=== PATIENT | female | born 1985 | race African-American/Black ===

== ENCOUNTER 2019-05-03 14:00 | Emergency (ER) | payer OTHER, BC, SELFPAY ==
[2019-05-03 14:14] VITALS: BP 128/79; PULSE 92; RESP 18; TEMP 37; O2SAT 100
--- NOTE | 2019-05-03 14:19 | ED.URI ---
HPI - URI/Sore Throat General Chief Complaint: Upper Respiratory Infection Stated Complaint: migraine/cough/watery eyes Time Seen by Provider: 05/03/19 14:19 Source: patient Mode of arrival: ambulatory Limitations: no limitations History of Present Illness HPI Narrative: Jeremias Richardson is a 33 yo female with no PMH who came to express care with headache, cough, watery eyes and itchy throat x 1 week Related Data Allergies Allergy/AdvReac Type Severity Reaction Status Date / Time No Known Allergies Allergy Unverified 08/12/18 17:05 Review of Systems Review of Systems: Narrative: CONSTITUTIONAL: Denies fever, chills, sweats. Has headache EYES: Denies visual changes, redness, discharge. ENT: Denies rhinorrhea, has congestion, has scratchy throat, otalgia. CARDIOVASCULAR: Denies chest pain, palpitations, edema. RESPIRATORY: Denies dyspnea, wheezing, has cough GASTROINTESTINAL: Denies abdominal pain, nausea, vomiting, diarrhea. GENITOURINARY: Denies dysuria, hematuria, abnormal discharge SKIN: Denies rash or itching. NEUROLOGIC: Denies numbness, or focal weakness. PSYCHIATRIC: Denies anxiety or depression. [facility] Family History Family History Other No active medical problems Social History Social History (Updated 05/03/19 @ 14:31 by Leslie Jeffery CNP) Smoking status: Never smoker Alcohol intake: never Comments At time of signature, I agree with nursing past medical, surgical, social and family history. There is no relevant family history pertinent to the presenting complaint. Exam Narrative: Exam Narrative: GENERAL: This is a well-nourished, well-developed patient, in mild distress. HEAD: normocephalic, atraumatic. EYES: Sclera clear/white. Vision is grossly intact. EARS: External ears normal, auditory canals clear and without drainage, TMs normal without perforation. Hearing grossly intact. NOSE: External nose normal with nasal discharge, nares with redness, rhinorrhea. Tenderness ethmoid sinuses THROAT: Mucous membranes moist, posterior pharynx erythema. Occasional cough NECK: Neck supple, non-tender CARDIOVASCULAR: Regular rate and rhythm without murmurs, gallops, or rubs. RESPIRATORY: Clear to auscultation. Breath sounds equal bilaterally. No wheezes, rales, or rhonchi. GASTROINTESTINAL: Abdomen soft, non-tender, SKIN: warm, intact with no suspicious lesions or rash, good texture and turgor. NEURO: awake, alert, and oriented to person, place and time. There were no obvious focal neurologic abnormalities. Steady gait EXTREMITIES: Normal range of motion. No edema. BACK: Nontender without deformity. Course Course Emergency Course: Start on ibuprofen Mucinex prednisone albuterol inhaler Vital Signs Vital signs: Vital Signs Temperature 98.6 F 05/03/19 14:14 Pulse Rate 92 05/03/19 14:14 Respiratory Rate 18 05/03/19 14:14 Blood Pressure 128/79 05/03/19 14:14 Pulse Oximetry 100 05/03/19 14:14 Temperature 98.6 F 05/03/19 14:14 Pulse Rate 92 05/03/19 14:14 Respiratory Rate 18 05/03/19 14:14 Blood Pressure 128/79 05/03/19 14:14 Pulse Oximetry 100 05/03/19 14:14 MDM - URI/Sore Throat Differential Diagnosis Differential diagnosis: Likely upper respiratory infection, sinusitis, viral infection and other Discharge Plan Discharge Clinical Impression: Sinusitis Qualifiers: Sinusitis location: ethmoidal Chronicity: acute Recurrence: non-recurrent Qualified Code(s): J01.20 - Acute ethmoidal sinusitis, unspecified Patient Disposition: Home, Self-Care Condition: Stable Instructions: Sinusitis (ED) Prescriptions: New pseudoephedrine-guaifenesin [Mucinex D Maximum Strength] 120-1,200 mg tablet extended release 12 hr 1 tablet PO Q12H PRN (Reason: cold symptoms) Qty: 20 RF: 0 albuterol sulfate 90 mcg/actuation HFA aerosol inhaler 2 puff INHALATION QID PRN (Reason: shortness of miguel
== END 2019-05-03 14:45 | disposition home or self-care (01) ==
PROVIDERS: Emergency Provider Nurse Practitioner
DX: J01.20 Acute ethmoidal sinusitis, unspecified (principal); J45.909 Unspecified asthma, uncomplicated
CPT/HCPCS: 99213; G0463

== ENCOUNTER 2019-07-16 18:40 | Emergency (ER) | payer OTHER, SELFPAY ==
[2019-07-16 18:58] VITALS: BP 127/91; PULSE 81; RESP 16; TEMP 37.2; O2SAT 98
--- NOTE | 2019-07-16 19:28 | ED.ABDPAIN ---
HPI - Abdominal Pain General Chief Complaint: Urogenital-Female Stated Complaint: abd pain/back pain Time Seen by Provider: 07/16/19 19:12 Source: patient and RN notes reviewed Mode of arrival: ambulatory Limitations: no limitations History of Present Illness HPI narrative: Patient presents today complaining of right lower quadrant abdominal pain radiating to the right lower back since yesterday morning. She also reports 4 episodes of diarrhea stool since midnight. Denies nausea, vomiting, fever, urinary symptoms. Reports the pain is constant, but worse when she is standing or when she takes a deep breath. She has been taking Tylenol PM, which does provide some relief. She currently rates her pain 11/16. LMP was 07/01/2019 MD elicited complaint: abdominal pain Related Data Allergies Allergy/AdvReac Type Severity Reaction Status Date / Time No Known Allergies Allergy Unverified 07/16/19 19:06 Review of Systems Review of Systems: Narrative: CONSTITUTIONAL: Denies body aches, fever, chills, or sweats. EYES: Denies visual changes, redness, or discharge. ENT: Denies rhinorrhea, congestion, sore throat, or otalgia. CARDIOVASCULAR: Denies chest pain, palpitations, or edema. RESPIRATORY: Denies cough or dyspnea. GASTROINTESTINAL: Denies nausea, vomiting. + Right lower quadrant abdominal pain, diarrhea GENITOURINARY: Denies dysuria or hematuria. SKIN: Denies rash, itching, or wounds. MUSCULOSKELETAL: Denies back pain, joint pain, or myalgia. NEUROLOGIC: Denies headache, numbness, tingling, or weakness. PSYCH: Denies depression or anxiety. [facility] Social History Social History (Updated 05/03/19 @ 14:31 by Leslie Jeffery CNP) Smoking status: Never smoker Alcohol intake: never Comments At time of signature, I have reviewed and agree with nursing past medical, surgical, social and family history unless otherwise noted. Please see nursing chart for further information. There is no relevant family history pertinent to the presenting complaint Exam Narrative: Exam Narrative: GENERAL: Well-appearing, well-nourished, and in no acute distress. HEAD: Normocephalic, atraumatic. EYES: EOMI. No redness or drainage. Conjunctivae normal. ENT: Mucous membranes pink and moist. NECK: Normal AROM. CHEST: No respiratory distress. Clear to auscultation. HEART: Regular rate and rhythm. No murmur appreciated. Normal peripheral pulses. ABDOMEN: Soft,nondistended, normal active bowel sounds. Tenderness, rebound, and guarding to the right lower quadrant. +heel jar. -CVAT MUSCULOSKELETAL: No bony tenderness spine. EXTREMITIES: Normal range of motion. No edema. SKIN: Warm, dry, no rash. Capillary refill normal. Normal skin turgor. NEURO: No focal deficits. Alert and oriented x3. Gait steady. PSYCH: Normal affect. No signs of depression or anxiety. Course Vital Signs Vital signs: Vital Signs Temperature 98.9 F 07/16/19 18:58 Pulse Rate 81 07/16/19 18:58 Respiratory Rate 16 07/16/19 18:58 Blood Pressure 127/91 H 07/16/19 18:58 Pulse Oximetry 98 07/16/19 18:58 Temperature 98.9 F 07/16/19 18:58 Pulse Rate 81 07/16/19 18:58 Respiratory Rate 16 07/16/19 18:58 Blood Pressure 127/91 H 07/16/19 18:58 Pulse Oximetry 98 07/16/19 18:58 Reviewed Transfer Transfered to: [place] Transfer rationale: Right lower quadrant abdominal pain Accepting physician: Gabriel Coffman PA-C MDM - Abdominal Pain Differential Diagnosis Differential diagnosis: Likely abdominal pain, acute appendicitis, calculus of kidney and gastroenteritis Lab Data Attestation: I reviewed the patient's lab results. Labs: Urine Glucose Negative Reference Range: Negative Urine Ketone Negative Reference Range: Negative Urine Specific [place] 1.020 Reference Range:1.001-1.035 Urine Blood Trace Reference Range: Negative * *
== END 2019-07-16 19:35 | disposition short-term general hospital (02) ==
PROVIDERS: Emergency Provider Nurse Practitioner
DX: R10.31 Right lower quadrant pain (principal); Z87.442 Personal history of urinary calculi
CPT/HCPCS: 81003; 99213; G0463

== ENCOUNTER 2019-07-16 19:48 | Emergency (ER) | payer OTHER, BC, SELFPAY ==
--- NOTE | ~2019-07-16 | US_ITS ---
EXAMINATION: US pelvic complete w TV EXAM DATE: 07/16/2019 22:35 INDICATION: Right lower quadrant pain. Unremarkable CT scan. TECHNIQUE: Pelvic transabdominal and transvaginal sonogram was performed. There are multiple graysca le and Doppler images available for interpretation. Correlation is made to CT same date. FINDINGS: Uterus measures 10.4 x 5.1 x 7.6 cm, and is morphologically normal. Endometrial stripe me asures 6 mm, within normal limits. There are nabothian cysts. There is no free pelvic fluid. Right adnexa: The ovary measures 3.9 x 2.6 x 3.1 cm and is morphologically normal. Ovarian vascular f low confirmed. Left adnexa: The ovary measures 4.6 x 4.0 x 3.3 cm and is morphologically normal. Ovarian vascular fl ow confirmed. IMPRESSION: 1. Nabothian cyst. Otherwise unremarkable exam. Reviewed, dictated and finalized at location G.
--- NOTE | ~2019-07-16 | CT_ITS ---
EXAMINATION: CT abdomen pelvis w con EXAM DATE: 07/16/2019 20:45 INDICATION: Right lower quadrant pain. TECHNIQUE: Spiral CT of the abdomen and pelvis was performed following intravenous injection of 100 m L Omnipaque 350. Axial, coronal and sagittal images were reviewed. The dose-length product (DLP) fo r this examination was 614.91 mGy-cm. The exposure was tailored according to patient size (auto mA e xposure control), and iterative reconstruction (ASIR) was used as additional dose reduction technique . There is no prior study for comparison. FINDINGS: The liver, spleen, adrenal glands and pancreas are unremarkable. Gallbladder is unremarkab le. No biliary obstruction. Portal and splenic veins are patent. Kidneys enhance symmetrically. T here is no hydronephrosis. The uterus is anteverted and morphologically normal. The bladder is un remarkable. There is no retroperitoneal or pelvic lymphadenopathy. The appendix is normal. The stomach and small bowel are unremarkable. There is expected amount of c olonic stool. No free intraperitoneal gas. The heart is normal in size. There are no pericardial or pleural effusions. The lung bases are unremarkable. The bones are unremarkable. IMPRESSION: No acute intra-abdominal findings. Reviewed, dictated and finalized at location A.
[2019-07-16 19:51] VITALS: BP 137/92; PULSE 79; RESP 18; TEMP 36.7; O2SAT 100
[2019-07-16] MEDS: MORPHINE SULFATE 4 MG/ML INJ IV PUSH (20:21)
[2019-07-16 20:22] LABS: Basophils Percent Auto 0.4 % (0.2-1.2); Eosinophils Percent Auto 0.6 % (0-4.4); Hematocrit 38.6 % (37.0-47.0); Immature Granulocyte Absolute 0.01 K/mm3 (0.00-0.031); Immature Granulocyte Percent A 0.2 % (0-0.5); Lymphocytes Absolute Auto 2.93 K/mm3 (0.9-3.2); Lymphocytes Percent Auto 54.7 % (18.3-44.2); Mean Corpuscular HGB Conc 33.7 g/dl (32-36); Mean Corpuscular Hemoglobin 29.5 pg (26-34); Mean Corpuscular Volume 87.7 fl (80-100); Mean Platelet Volume 10.5 fl (7.4-10.4); Monocytes Absolute Auto 0.4 K/mm3 (0.1-0.6); Monocytes Percent Auto 8.2 % (2.6-8.5); Neutrophils Absolute Auto 1.9 K/mm3 (1.3-6.7); Neutrophils Percent Auto 35.9 % (45.5-73.1); Platelet Count Result 251 k/mm3 (150-375); Red Cell Distribution Width 14.5 % (11.5-14.5); White Blood Count 5.4 K/mm3 (4.5-10.0)
--- NOTE | 2019-07-16 20:22 | ED.ABDPAIN ---
HPI - Abdominal Pain General Chief Complaint: Abdominal Pain Stated Complaint: rlq abd pain; [facility] Time Seen by Provider: 07/16/19 20:06 History of Present Illness HPI narrative: Patient is a 33-year-old female who presents the ER with abdominal pain. Reports symptoms began yesterday and were new right lower quadrant and uncomfortable. Over the last day its become much more intense and is worse with any type of movement. It radiates into her back and her right upper quadrant. No urinary symptoms. No nausea/vomiting/shortness of breath. She has been without constipation or diarrhea. Has not had similar symptoms in the past. Symptoms are better if she sits still. Related Data Allergies Allergy/AdvReac Type Severity Reaction Status Date / Time No Known Allergies Allergy Verified 07/16/19 19:53 Review of Systems Review of Systems: All systems reviewed & are unremarkable except as noted in HPI and below Gastrointestinal: Gastrointestinal: Reports abdominal pain, Denies diarrhea, Denies nausea and Denies vomiting Genitourinary: Genitourinary: Denies hematuria, Denies nocturia, Denies dysuria and Reports flank pain PMFSH Past Medical History Medical History (Updated 07/17/19 @ 00:11 by Chuck Narvaez MD) Asthma Surgical History Surgical History (Updated 07/16/19 @ 20:23 by Chuck Narvaez MD) No pertinent past surgical history Social History Social History (Updated 05/03/19 @ 14:31 by Leslie Jeffery CNP) Smoking status: Never smoker Alcohol intake: never Gender identity (if verbalized by the patient): Female Exam Narrative: Exam Narrative: GENERAL: Well-appearing, well-nourished, and in no acute distress. HEAD: Normocephalic, atraumatic. ENT: Mucous membranes moist. CHEST: Clear to auscultation. No respiratory distress. HEART: Regular rate and rhythm. Normal peripheral pulses. ABDOMEN: Soft, mild tenderness right upper quadrant but has moderate tenderness right lower quadrant with guarding, nondistended. EXTREMITIES: Normal range of motion. No edema. PELVIC: Normal external genitalia. Frothy white discharge with pooling, normal-appearing cervix, mild discomfort with bimanual exam, tenderness to the right adnexa without fullness, no left adnexal tenderness. SKIN: Warm, dry, no rash. NEURO: Alert and oriented x3. PSYCH: Normal mood and affect. Course Course Emergency Course: Patient sexually active with one partner. No increase or change in vaginal discharge. I do have concern for PID given the fact that work-up is otherwise been unremarkable. 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 Patient will receive first dose antibiotics in the ER will be discharged with additional antibiotics. Instructed her return in 2 days if pain is worsening. Will give Seasonal Delivery Driver follow-up. Vital Signs Vital signs: Vital Signs Temperature 98.1 F 07/16/19 19:51 Pulse Rate 79 07/16/19 19:51 Respiratory Rate 18 07/16/19 19:51 Blood Pressure 137/92 H 07/16/19 19:51 Pulse Oximetry 100 07/16/19 19:51 Temperature 98.1 F 07/16/19 19:51 Pulse Rate 78 07/16/19 22:40 Respiratory Rate 18 07/16/19 22:40 Blood Pressure 134/90 07/16/19 22:40 Pulse Oximetry 100 07/16/19 19:51 MDM - Abdominal Pain Lab Data Result diagrams: 07/16/19 20:15 07/16/19 20:14 Labs: Lab Results 07/16/19 07/16/19 07/16/19 Range/Units 20:14 20:15 20:15 WBC 5.4 (4.5-10.0) K/mm3 RBC 4.40 (4.2-5.4) M/mm3 Hgb 13.0 (12.0-15.0) g/dL Hct 38.6 (37.0-47.0) % MCV 87.7 (80-100) fl MCH 29.5 (26-34) pg MCHC 33.7 (32-36) g/dl RDW 14.5 (11.5-14.5) % Plt Count 251 (150-375) k/mm3 MPV 10.5 H (7.4-10.4) fl Immature Gran % (Auto) 0.2 (0-0.5) % Neut % (Auto) 35.9 L (45.5-73.1) % Lymph % (Auto) 54.7 H (18.3-44.2) % [place] % (Auto) 8.2 (2.6-8.5) % Eos % (Auto)
[2019-07-16 20:27] LABS: Add Urine Microscopic? YES; Appearance Urine Cloudy (Clear); Bilirubin Urine Negative (Negative); Blood Urine Negative (Negative); Color Urine Yellow (Yellow); Glucose Urine UA Negative (Negative); Ketones Urine Negative (Negative); Leukocyte Esterase Ur 2+ LEU/UL (Negative); Mucus Urine Rare /lpf; Nitrate Urine Negative (Negative); Protein Urine 1+ mg/dL (Negative); Specific Grav Ur 1.029 (1.001-1.035); Squamous Epithelial Cell Urine Many /hpf (Few); Urobilinogen Urine Negative mg/dL (<2.0)
[2019-07-16 20:33] LABS: Alanine Aminotransferase 20 U/L (4-35); Albumin Level 4.6 g/dL (3.5-5.1); Alkaline Phosphatase 80 U/L (38-126); Aspartate Amino Transferase 24 U/L (14-36); Bilirubin,Total 0.4 mg/dL (0.2-1.3); Blood Urea Nitrogen 9 mg/dL (7-17); Carbon Dioxide 22 mmol/L (22-30); Chloride 105 mmol/L (98-107); Estimated CRCL calculation 110 ml/min; Estimated Glomerular Filt Rate > 60; Glucose 77 mg/dL (65-105); Lipase 108 U/L (23-300); Potassium 3.9 mmol/L (3.4-5.0); Sodium 136 mmol/L (137-145)
[2019-07-16 22:40] VITALS: BP 134/90; PULSE 78; RESP 18
[2019-07-16] MEDS: KETOROLAC 30 MG/ML VIAL (*BKC) IV PUSH (22:46)
[2019-07-17] MEDS: cefTRIAXone 250 MG VIAL IM (00:23)
[2019-07-17 00:24] VITALS: BP 126/91; PULSE 76; RESP 19; TEMP 37; O2SAT 100
[2019-07-17] MEDS: DOXYCYCLINE HYCLATE 100 MG TABLET PO (00:24)
== END 2019-07-17 00:25 | disposition home or self-care (01) ==
PROVIDERS: Emergency Provider Emergency Medicine
DX: R10.31 Right lower quadrant pain (principal); J45.909 Unspecified asthma, uncomplicated; N88.8 Other specified noninflammatory disorders of cervix uteri; Z11.3 Encounter for screening for infections with a predominantly sexual mode of transmission
CPT/HCPCS: 36415; 74177; 76830; 76856; 80053; 81001; 81003; 81025; 83690; 85025; 87070; 87077; 87086; 87088; 87491; 87591; 87808; 96372; 96374; 96375; 99284; A9270; J0696; J1885; J2270; Q9967

== ENCOUNTER 2019-09-17 12:24 | Emergency (ER) | payer OTHER, SELFPAY ==
[2019-09-17 12:37] VITALS: BP 129/79; PULSE 87; RESP 16; TEMP 36.8; O2SAT 99
--- NOTE | 2019-09-17 13:02 | ED.FEMALEGU ---
HPI - Female Genitourinary General Chief complaint: Urogenital-Female Stated complaint: abd pain Time Seen by Provider: 09/17/19 12:50 Source: patient and RN notes reviewed Mode of arrival: ambulatory Limitations: no limitations History of Present Illness HPI Narrative: Patient presents today with a 3-day history of external genital itching with white vaginal discharge. Denies urinary symptoms to include dysuria, hematuria, frequency, urgency. Denies abdominal pain, back pain, fever. Denies concerns for STDs. She was seen in July here and in the ER for lower abdominal pain and treated for possible PID. She did not follow-up with an ADAPTED PHYSICAL EDUCATION TEACHER after this. MD elicited complaint: vaginal discharge Related Data Home Medications Medication Instructions Recorded Confirmed albuterol sulfate 1 inh INHALATION QID 09/17/19 09/17/19 Allergies Allergy/AdvReac Type Severity Reaction Status Date / Time No Known Allergies Allergy Verified 09/17/19 12:42 Review of Systems Review of Systems: Narrative: CONSTITUTIONAL: Denies body aches, fever, chills, or sweats. EYES: Denies visual changes, redness, or discharge. ENT: Denies rhinorrhea, congestion, sore throat, or otalgia. CARDIOVASCULAR: Denies chest pain, palpitations, or edema. RESPIRATORY: Denies cough or dyspnea. GASTROINTESTINAL: Denies abdominal pain, nausea, vomiting, or diarrhea. GENITOURINARY: Denies dysuria or hematuria.+ Dental itching and vaginal discharge SKIN: Denies rash, itching, or wounds. MUSCULOSKELETAL: Denies back pain, joint pain, or myalgia. NEUROLOGIC: Denies headache, numbness, tingling, or weakness. PSYCH: Denies depression or anxiety. [facility] Past Medical History Medical History (Updated 09/17/19 @ 13:06 by Amanda Carrasco, [facility], ) Asthma Surgical History Surgical History (Updated 07/16/19 @ 20:23 by Chuck Narvaez MD) No pertinent past surgical history Social History Social History (Updated 05/03/19 @ 14:31 by Leslie Jeffery CNP) Smoking status: Never smoker Alcohol intake: never Gender identity (if verbalized by the patient): Female Comments At time of signature, I have reviewed and agree with nursing past medical, surgical, social and family history unless otherwise noted. Please see nursing chart for further information. There is no relevant family history pertinent to the presenting complaint Exam Narrative: Exam Narrative: GENERAL: Well-appearing, well-nourished, and in no acute distress. HEAD: Normocephalic, atraumatic. EYES: EOMI. No redness or drainage. Conjunctivae normal. ENT: Mucous membranes pink and moist. NECK: Normal AROM. CHEST: No respiratory distress. Clear to auscultation. HEART: Regular rate and rhythm. No murmur appreciated. Normal peripheral pulses. ABDOMEN: Soft, nontender, nondistended, normal active bowel sounds. : Copious chunky white vaginal discharge with mild external erythema. Mild erythema of the vaginal sykes. -CMT, -adnexal tenderness MUSCULOSKELETAL: No bony tenderness. EXTREMITIES: Normal range of motion. No edema. SKIN: Warm, dry, no rash. Capillary refill normal. Normal skin turgor. NEURO: No focal deficits. Alert and oriented x3. Gait steady. PSYCH: Normal affect. No signs of depression or anxiety. Course Vital Signs Vital signs: Vital Signs Temperature 98.2 F 09/17/19 12:37 Pulse Rate 87 09/17/19 12:37 Respiratory Rate 16 09/17/19 12:37 Blood Pressure 129/79 09/17/19 12:37 Pulse Oximetry 99 09/17/19 12:37 Temperature 98.2 F 09/17/19 12:37 Pulse Rate 87 09/17/19 12:37 Respiratory Rate 16 09/17/19 12:37 Blood Pressure 129/79 09/17/19 12:37 Pulse Oximetry 99 09/17/19 12:37 Reviewed. Pt has been instructed to follow up with her PCP regarding her elevated blood pressure today. MDM - Female Genitourinary Differential Diagnosis Differential diagnosis: Likely urinary tract infection, bacterial vaginosis, vaginitis, cystitis and oth
== END 2019-09-17 13:10 | disposition home or self-care (01) ==
PROVIDERS: Emergency Provider Nurse Practitioner
DX: B37.3 Candidiasis of vulva and vagina (principal); N30.01 Acute cystitis with hematuria; J45.909 Unspecified asthma, uncomplicated
CPT/HCPCS: 81003; 87086; 87088; 99214; G0463

== ENCOUNTER 2020-08-19 11:57 | Emergency (ER) | payer OTHER, SELFPAY ==
[2020-08-19 12:07] VITALS: BP 126/87; PULSE 82; RESP 16; TEMP 36.6; O2SAT 99
[2020-08-19] MEDS: cefTRIAXone 250 MG VIAL 500 MG IM (13:02)
[2020-08-19] MEDS: LIDOCAINE HCL 1% LOCAL INJ 20 ML VIAL IM (13:02)
--- NOTE | 2020-08-19 13:05 | ED.FEMALEGU ---
HPI - Female Genitourinary General Chief complaint: Abdominal Pain Stated complaint: abd pain Time Seen by Provider: 08/19/20 12:32 Source: patient and RN notes reviewed Mode of arrival: ambulatory Limitations: no limitations History of Present Illness HPI Narrative: Patient presents today complaining of a 2-week history of white vaginal discharge and a 2-day history of pelvic pain. She did have a miscarriage 1 month ago. Subsequently she did see an COMMERCIAL KITCHEN SERVICE TECHNICIAN where she was told she did not need a D&C and that all of the uterine material passed properly. Patient used a douche 2 weeks after her miscarriage and she has never used one before. She could not get in to see an COMMERCIAL KITCHEN SERVICE TECHNICIAN for her current concerns. Denies fever, nausea, vomiting, diarrhea. Denies urinary symptoms. MD elicited complaint: vaginal discharge Related Data Allergies Allergy/AdvReac Type Severity Reaction Status Date / Time No Known Allergies Allergy Verified 09/17/19 12:42 Review of Systems Review of Systems: Narrative: CONSTITUTIONAL: Denies body aches, fever, chills, or sweats. EYES: Denies visual changes, redness, or discharge. ENT: Denies rhinorrhea, congestion, sore throat, or otalgia. CARDIOVASCULAR: Denies chest pain, palpitations, or edema. RESPIRATORY: Denies cough or dyspnea. GASTROINTESTINAL: Denies abdominal pain, nausea, vomiting, or diarrhea. GENITOURINARY: Denies dysuria or hematuria.+ Vaginal discharge, pelvic pain SKIN: Denies rash, itching, or wounds. MUSCULOSKELETAL: Denies back pain, joint pain, or myalgia. NEUROLOGIC: Denies headache, numbness, tingling, or weakness. PSYCH: Denies depression or anxiety. [facility] Past Medical History Medical History (Updated 08/19/20 @ 14:49 by Amanda Carrasco, [facility], ) Asthma History of miscarriage Surgical History Surgical History (Updated 07/16/19 @ 20:23 by Chuck Narvaez MD) No pertinent past surgical history Family History Family History Other No active medical problems Social History Social History (Updated 05/03/19 @ 14:31 by Leslie Jeffery CNP) Smoking status: Never smoker Alcohol intake: never Gender identity (if verbalized by the patient): Female Comments At time of signature, I have reviewed and agree with nursing past medical, surgical, social and family history unless otherwise noted. Please see nursing chart for further information. There is no relevant family history pertinent to the presenting complaint Exam Narrative: Exam Narrative: GENERAL: Well-appearing, well-nourished, and in no acute distress. HEAD: Normocephalic, atraumatic. EYES: EOMI. No redness or drainage. Conjunctivae normal. ENT: Mucous membranes pink and moist. NECK: Normal AROM. CHEST: No respiratory distress. ABDOMEN: Soft, nondistended, normal active bowel sounds.+ Tenderness to the bilateral lower quadrants and suprapubic area. No rebound or guarding. Vaginal sykes are erythematous. Cervix is erythematous but nonfriable.-CMT. No adnexal tenderness. Copious white-yellow discharge. MUSCULOSKELETAL: No bony tenderness. EXTREMITIES: Normal range of motion. No edema. SKIN: Warm, dry, no rash. Capillary refill normal. Normal skin turgor. NEURO: No focal deficits. Alert and oriented x3. Gait steady. PSYCH: Normal affect. No signs of depression or anxiety. Course Vital Signs Vital signs: Vital Signs Temperature 97.9 F 08/19/20 12:07 Pulse Rate 82 08/19/20 12:07 Respiratory Rate 16 08/19/20 12:07 Blood Pressure 126/87 08/19/20 12:07 Pulse Oximetry 99 08/19/20 12:07 Temperature 97.9 F 08/19/20 12:07 Pulse Rate 82 08/19/20 12:07 Respiratory Rate 16 08/19/20 12:07 Blood Pressure 126/87 08/19/20 12:07 Pulse Oximetry 99 08/19/20 12:07 Reviewed. Pt has been instructed to follow up with her PCP regarding her elevated blood pressure today. MDM - Female Genitourinary Differential Diagno
== END 2020-08-19 13:24 | disposition home or self-care (01) ==
PROVIDERS: Emergency Provider Nurse Practitioner
DX: N89.8 Other specified noninflammatory disorders of vagina (principal); R10.2 Pelvic and perineal pain; J45.909 Unspecified asthma, uncomplicated
CPT/HCPCS: 81003; 87070; 87077; 96372; 99214; G0463; J0696

== ENCOUNTER 2020-10-09 15:31 | Emergency (ER) | payer OTHER, SELFPAY ==
[2020-10-09 15:36] VITALS: BP 117/80; PULSE 81; RESP 18; TEMP 36.7; O2SAT 100
--- NOTE | 2020-10-09 16:30 | ED.SKABFB ---
HPI - Skin/Abscess/Foreign Bdy General Chief complaint: Skin/Abscess/Foreign Body Stated complaint: hpb Source: patient and RN notes reviewed Mode of arrival: ambulatory History of Present Illness HPI narrative: This is a 35-year-old female who presented to urgent care today with complaints of vaginal irritation after using a bath bomb last night. patient notes that her vaginal area has swollen in is painful. She does not have vaginal discharge. The patient denies SOB, CP, palpitation, extremity numbness, lightheadedness, dizziness, constipation, diarrhea, chills, STDs, vaginal discharge or bleeding or fever. Related Data Allergies Allergy/AdvReac Type Severity Reaction Status Date / Time No Known Allergies Allergy Verified 09/17/19 12:42 Review of Systems Review of Systems: A 14 organ system Review of Systems was performed and pertinent positives included in the HPI, otherwise remaining ROS is negative. [facility] Past Medical History Medical History Asthma History of miscarriage Surgical History Surgical History No pertinent past surgical history Family History Family History Other No active medical problems Social History Social History Smoking status: Never smoker Alcohol intake: never Gender identity (if verbalized by the patient): Female Exam Narrative: GENERAL: This is a well-nourished, well-developed patient, in no apparent distress. HEAD: normocephalic, atraumatic. EYES: PERRL. Sclera clear/white. Vision is grossly intact. EARS: External ears normal, auditory canals clear and without drainage, TMs normal without perforation. Hearing grossly intact. NOSE: External nose normal with no obvious nasal discharge, nares without redness, no rhinorrhea. THROAT: Mucous membranes moist, posterior pharynx clear. NECK: Neck supple, non-tender without lymphadenopathy, masses or thyromegaly. CARDIOVASCULAR: Regular rate and rhythm without murmurs, gallops, or rubs. RESPIRATORY: Clear to auscultation. Breath sounds equal bilaterally. No wheezes, rales, or rhonchi. GASTROINTESTINAL: Abdomen soft, non-tender, nondistended. Bowel sounds are active. No hepato-splenomegaly, or palpable masses. No guarding. SKIN: warm, intact with no suspicious lesions or rash, good texture and turgor. NEURO: awake, alert, and oriented to person, place and time. There were no obvious focal neurologic abnormalities. Steady gait EXTREMITIES: Normal range of motion. No edema. No calf tenderness. Negative Homans sign bilaterally. BACK: Nontender without deformity or crepitance. No flank tenderness. Course Vital Signs Vital signs: Vital Signs Temperature 98.1 F 10/09/20 15:36 Pulse Rate 81 10/09/20 15:36 Respiratory Rate 18 10/09/20 15:36 Blood Pressure 117/80 10/09/20 15:36 Pulse Oximetry 100 10/09/20 15:36 Temperature 98.1 F 10/09/20 15:36 Pulse Rate 81 10/09/20 15:36 Respiratory Rate 18 10/09/20 15:36 Blood Pressure 117/80 10/09/20 15:36 Pulse Oximetry 100 10/09/20 15:36 MDM - Skin/Abscess/Foreign Bdy Differential Diagnosis Differential diagnosis: Likely allergic reaction to drug, contact dermatitis and other (Vaginitis) Discharge Plan Discharge Clinical Impression: Contact dermatitis Qualifiers: Contact dermatitis type: allergic Contact dermatitis trigger: cosmetics Qualified Code(s): L23.2 - Allergic contact dermatitis due to cosmetics Vaginitis Qualifiers: Chronicity: acute Qualified Code(s): N76.0 - Acute vaginitis Patient Disposition: Home, Self-Care Condition: Stable Instructions: Antibiotic Form, Contact Dermatitis (ED) Additional Instructions: Wash the area with soap and cool water only. Avoid scratching when possible to prevent worsening o
== END 2020-10-09 16:56 | disposition home or self-care (01) ==
PROVIDERS: Emergency Provider Nurse Practitioner
DX: L23.2 Allergic contact dermatitis due to cosmetics (principal); N76.0 Acute vaginitis; J45.909 Unspecified asthma, uncomplicated
CPT/HCPCS: 99213; G0463

== ENCOUNTER 2020-10-25 18:04 | Emergency (ER) | payer OTHER, SELFPAY ==
--- NOTE | ~2020-10-25 | XR_ITS ---
XR chest 2V DATE: 10/25/2020 18:27 INDICATION: Shortness of breath. History of asthma. TECHNIQUE: 2 views COMPARISON: 06/07/2015 2 view chest FINDINGS: No pulmonary infiltrate or consolidation, pleural effusion or pulmonary vascular congestion or pneumothorax. Borderline heart size. No hilar or mediastinal enlargement. Included skeletal structures are unremarkable. IMPRESSION: No active pulmonary disease Reviewed, dictated and finalized at location A. IMPRESSION: No active pulmonary disease
[2020-10-25 18:16] VITALS: BP 148/76; PULSE 90; RESP 16; TEMP 36.9; O2SAT 100
--- NOTE | 2020-10-25 18:33 | ED.ASTHMA ---
HPI - Asthma General Chief Complaint: Upper Respiratory Infection Stated Complaint: Breast Pain, Shortness of Breath Time Seen by Provider: 10/25/20 18:33 Source: patient Mode of arrival: ambulatory Limitations: no limitations History of Present Illness HPI Narrative: Jeremias Richardson is a 35 yo female with a PMH of asthma comes to [facility] with asthma exacerbation. Patient states that her breasts have been growing because of tumor but unsure what [facility] plans to do. She has gotten prednisone in the past which helps with her asthma Related Data Home Medications Medication Instructions Recorded Confirmed albuterol mcg INHALATION 10/25/20 Allergies Allergy/AdvReac Type Severity Reaction Status Date / Time No Known Allergies Allergy Verified 10/25/20 18:20 Review of Systems Review of Systems: CONSTITUTIONAL: Denies fever, chills, sweats. EYES: Denies visual changes, redness, discharge. ENT: Denies rhinorrhea, congestion, sore throat, otalgia. CARDIOVASCULAR: Denies chest pain, palpitations, edema. RESPIRATORY: Denies dyspnea, wheezing, cough shortness of breath from asthma GASTROINTESTINAL: Denies abdominal pain, nausea, vomiting, diarrhea. GENITOURINARY: Denies dysuria, hematuria, abnormal discharge SKIN: Denies rash or itching. NEUROLOGIC: Denies numbness, or focal weakness. PSYCHIATRIC: Denies anxiety or depression. PMFSH Past Medical History Medical History Asthma History of miscarriage Pituitary abnormality Surgical History Surgical History No pertinent past surgical history Family History Family History Other No active medical problems Social History Social History Smoking status: Never smoker Alcohol intake: never Gender identity (if verbalized by the patient): Female Comments At time of signature, I agree with nursing past medical, surgical, social and family history. There is no relevant family history pertinent to the presenting complaint. Exam Narrative: GENERAL: This is a well-nourished, well-developed patient, in mild distress. HEAD: normocephalic, atraumatic. EYES: Sclera clear/white. Vision is grossly intact. EARS: External ears normal. Hearing grossly intact. NOSE: External nose normal without nasal discharge, nares without redness, no rhinorrhea. THROAT: Mucous membranes moist, NECK: Neck supple, non-tender CARDIOVASCULAR: Regular rate and rhythm without murmurs, gallops, or rubs. RESPIRATORY: Coarse to auscultation. Breath sounds equal bilaterally. No wheezes, rales, or rhonchi. GASTROINTESTINAL: Abdomen soft, SKIN: warm, intact with no suspicious lesions or rash, good texture and turgor. NEURO: awake, alert, and oriented to person, place and time. There were no obvious focal neurologic abnormalities. Steady gait EXTREMITIES: Normal range of motion. BACK: Nontender without deformity Course Course Emergency Course: Complaining of some shortness of breath with asthma exacerbation which is mild Chest x-ray done- appears negative, no active pulmonary disease Prednisone 60 mg given here and will give 60 mg of prednisone x5 days on discharge along with an additional albuterol inhaler Vital Signs Vital signs: Vital Signs Temperature 98.5 F 10/25/20 18:16 Pulse Rate 90 10/25/20 18:16 Respiratory Rate 16 10/25/20 18:16 Blood Pressure 148/76 H 10/25/20 18:16 Pulse Oximetry 100 10/25/20 18:16 Temperature 98.5 F 10/25/20 18:16 Pulse Rate 90 10/25/20 18:16 Respiratory Rate 16 10/25/20 18:16 Blood Pressure 148/76 H 10/25/20 18:16 Pulse Oximetry 100 10/25/20 18:16 MDM - Asthma Differential Diagnosis Differential diagnosis: Likely Acute exacerbation, Pneumonia, Pulmonary edema dystolic and other Cri
[2020-10-25] MEDS: predniSONE 20 MG TABLET 60 MG PO (19:10)
== END 2020-10-25 19:13 | disposition home or self-care (01) ==
PROVIDERS: Emergency Provider Nurse Practitioner
DX: J45.20 Mild intermittent asthma, uncomplicated (principal)
CPT/HCPCS: 71046; 99213; G0463; J7512

== ENCOUNTER 2021-03-09 12:20 | Emergency (ER) | payer OTHER, SELFPAY ==
--- NOTE | 2021-03-09 12:23 | ED.UPPEXIN ---
HPI - Extremity Injury (Upper) General Chief Complaint: Extremity Problem,Nontraumatic Stated Complaint: Right shoulder Pain Time Seen by Provider: 03/09/21 12:30 Source: patient, family, RN notes reviewed and old records reviewed Mode of arrival: ambulatory Limitations: no limitations History of Present Illness HPI narrative: 35-year-old female presents to the [facility] with complaints of shoulder pain 3 weeks. Patient states that her bra presses into her shoulder and it causes discomfort. Has full range of motion. Pain when arm is raised above head. No treatment prior to arrival. Has not seen primary care provider. MD complaint: injury to: right (shoulder pain) Related Data Allergies Allergy/AdvReac Type Severity Reaction Status Date / Time No Known Allergies Allergy Verified 03/09/21 12:27 Review of Systems Review of Systems: All systems reviewed & are unremarkable except as noted in HPI and below Constitutional: Constitutional: Reports no additional constitutional complaints, Denies chills, Denies fever(s), Denies headache(s) and Denies weakness Eyes: Eyes: Reports no additional eye complaints ENT: Reports system reviewed and no additional complaints, except as documented, Denies vertigo, Denies dizziness and Denies headache(s) Cardiovascular: Cardiovascular: Reports no additional cardiovascular complaints, Denies chest pain, Denies syncope and Denies dyspnea Respiratory: Respiratory: Reports no additional respiratory complaints, Denies cough and Denies dyspnea Gastrointestinal: Gastrointestinal: Reports no additional gastrointestinal complaints, Denies abdominal pain, Denies nausea and Denies vomiting Musculoskeletal: Musculoskeletal: Reports as per HPI, Reports arthralgias (Right posterior shoulder, trapezius), Denies joint swelling and Denies numbness Integumentary/Breasts: Skin/Breast: Reports system reviewed and no additional complaints, except as docu, Denies erythema and Denies rash Neurologic: Reports system reviewed and no additional complaints, except as documented, Denies confusion, Denies vertigo, Denies dizziness, Denies syncope, Denies headache(s), Denies focal weakness, Denies numbness and Denies weakness Psychiatric: Psychiatric: Reports no additional psychiatric complaints and Denies confusion Allergic/Immunologic: Allergic/Immunologic: Reports no additional allergic/immunologic complaints PMFSH Past Medical History Medical History Asthma History of miscarriage Pituitary abnormality Surgical History Surgical History No pertinent past surgical history Family History Family History Other No active medical problems Social History Social History Smoking status: Never smoker Alcohol intake: never Gender identity (if verbalized by the patient): Female Comments At the time of my signature, I reviewed and agree with the nursing past medical, surgical, social, and family history. There is no relevant family history pertinent to the patient complaint. Exam Const: General: healthy appearing, no acute distress and alert; No confusion Nutritional Appearance: well nourished and obese Orientation/consciousness: patient oriented x3 Limitations: no limitations HENMT: Head: normal to inspection Ears: external ears normal Eyes: Pupils: Equal, round and reactive pupils present Neck: Neck: normal visual inspection, no lymphadenopathy and no meningeal signs Chest: Chest palpation & inspection: normal inspection of the chest Resp: Effort & Inspection: normal respiratory effort and no use of accessory muscles Auscultation: clear to auscultation bilaterally, no crackles, no rales, no rhonchi and no wheezes Cardio: Rate: regular rate Rhythm: regular rhythm Back/Spine/Pelvis: Back: no CVA tendernes
[2021-03-09 12:29] VITALS: BP 146/81; PULSE 83; RESP 16; TEMP 36.6; O2SAT 100
== END 2021-03-09 12:44 | disposition home or self-care (01) ==
PROVIDERS: Emergency Provider Nurse Practitioner
DX: M62.838 Other muscle spasm (principal); J45.909 Unspecified asthma, uncomplicated
CPT/HCPCS: 99213; G0463

== ENCOUNTER 2021-03-30 10:04 | Emergency (ER) | payer OTHER, SELFPAY ==
[2021-03-30 10:10] VITALS: BP 134/94; PULSE 76; RESP 16; TEMP 37.1; O2SAT 100
--- NOTE | 2021-03-30 10:10 | ED.FEMALEGU ---
HPI - Female Genitourinary General Chief complaint: Urogenital-Female Stated complaint: Vaginal irritation Time Seen by Provider: 03/30/21 10:10 Source: patient, RN notes reviewed and old records reviewed Mode of arrival: ambulatory Limitations: no limitations History of Present Illness HPI Narrative: 35-year-old female presents to the [facility] with complaints of vaginal irritation, discharge and feels like her vagina is swollen since using [employer] soap in her bathtub. States the irritation started last night. Denies any chances of an STD. Denies abdominal pain, chest pain, shortness of breath, nausea,vomiting or diarrhea MD elicited complaint: vaginal discharge, genital swelling and genital itching Related Data Home Medications Medication Instructions Recorded Confirmed albuterol sulfate INHALATION 03/30/21 Allergies Allergy/AdvReac Type Severity Reaction Status Date / Time No Known Allergies Allergy Verified 03/09/21 12:27 Review of Systems Review of Systems: All systems reviewed & are unremarkable except as noted in HPI and below Constitutional: Constitutional: Reports no additional constitutional complaints, Denies chills and Denies fatigue Eyes: Eyes: Reports no additional eye complaints ENT: Reports system reviewed and no additional complaints, except as documented Cardiovascular: Cardiovascular: Reports no additional cardiovascular complaints and Denies chest pain Respiratory: Respiratory: Reports no additional respiratory complaints, Denies cough and Denies dyspnea Gastrointestinal: Gastrointestinal: Reports no additional gastrointestinal complaints, Denies abdominal pain, Denies diarrhea, Denies nausea and Denies vomiting Genitourinary: Genitourinary: Reports as per HPI, Denies hematuria, Denies nocturia, Denies dysuria, Reports pelvic pain, Denies flank pain and Reports vaginal discharge Musculoskeletal: Musculoskeletal: Reports no additional musculoskeletal complaints, Denies back pain and Denies muscle cramps Integumentary/Breasts: Skin/Breast: Reports system reviewed and no additional complaints, except as docu, Denies erythema and Denies rash Neurologic: Reports system reviewed and no additional complaints, except as documented Psychiatric: Psychiatric: Reports no additional psychiatric complaints Allergic/Immunologic: Allergic/Immunologic: Reports no additional allergic/immunologic complaints PMFSH Past Medical History Medical History Asthma History of miscarriage Pituitary abnormality Surgical History Surgical History No pertinent past surgical history Family History Family History Other No active medical problems Social History Social History Smoking status: Never smoker Alcohol intake: never Gender identity (if verbalized by the patient): Female Comments At the time of my signature, I reviewed and agree with the nursing past medical, surgical, social, and family history. There is no relevant family history pertinent to the patient complaint. Exam Const: General: healthy appearing, no acute distress and alert Nutritional Appearance: well nourished Orientation/consciousness: patient oriented x3 Limitations: no limitations HENMT: Head: normal to inspection Eyes: Conjunctivae: conjunctivae normal Pupils: Equal, round and reactive pupils present Neck: Neck: normal visual inspection, no lymphadenopathy and no meningeal signs Chest: Chest palpation & inspection: normal inspection of the chest and abnormal inspection of the chest Resp: Effort & Inspection: normal respiratory effort Auscultation: clear to auscultation bilaterally Cardio: Rate: regular rate Rhythm: regular rhythm GI: GI Palp: Yes Soft to palpation, No Tenderness to palpation
--- NOTE | 2021-03-30 10:27 | PC.NURSE ---
1022 pelvic exam with vag. cx obtained by textile technologist.
== END 2021-03-30 10:28 | disposition home or self-care (01) ==
PROVIDERS: Emergency Provider Nurse Practitioner
DX: N76.0 Acute vaginitis (principal); J45.909 Unspecified asthma, uncomplicated
CPT/HCPCS: 87070; 87147; 99214; G0463

== ENCOUNTER 2021-07-13 12:13 | Emergency (ER) | payer OTHER, SELFPAY ==
[2021-07-13 12:22] VITALS: BP 131/77; PULSE 85; RESP 16; TEMP 36.4; O2SAT 100
--- NOTE | 2021-07-13 12:52 | ED.UPPEXIN ---
HPI - Extremity Injury (Upper) General Chief Complaint: Extremity Injury, Upper Stated Complaint: Left hand Pain Time Seen by Provider: 07/13/21 12:53 Source: patient and RN notes reviewed Mode of arrival: ambulatory Limitations: no limitations History of Present Illness HPI narrative: 35-year-old female presents to the [facility] with complaints of bilateral wrist pain, hand numbness and tingling, worse at night reports doing repetitive motions at work daily. No treatment prior to arrival. Patient states that is been going on for at least a week. Not seen primary care regarding this. Denies any injury. Denies any treatment prior to arrival Related Data Allergies Allergy/AdvReac Type Severity Reaction Status Date / Time No Known Allergies Allergy Verified 07/13/21 12:52 Review of Systems Review of Systems: All systems reviewed & are unremarkable except as noted in HPI and below Constitutional: Constitutional: Reports no additional constitutional complaints, Denies chills and Denies fever(s) Eyes: Eyes: Reports no additional eye complaints ENT: Reports system reviewed and no additional complaints, except as documented Cardiovascular: Cardiovascular: Reports no additional cardiovascular complaints Respiratory: Respiratory: Reports no additional respiratory complaints Gastrointestinal: Gastrointestinal: Reports no additional gastrointestinal complaints Musculoskeletal: Musculoskeletal: Reports as per HPI and Reports arthralgias (bilateral wrist. ) Integumentary/Breasts: Skin/Breast: Reports system reviewed and no additional complaints, except as docu Neurologic: Reports numbness (Bilateral hands at night) Psychiatric: Psychiatric: Reports no additional psychiatric complaints Allergic/Immunologic: Allergic/Immunologic: Reports no additional allergic/immunologic complaints PMFSH Past Medical History Medical History Asthma History of miscarriage Pituitary abnormality Surgical History Surgical History No pertinent past surgical history Family History Family History Other No active medical problems Social History Social History Smoking status: Never smoker Alcohol intake: never Gender identity (if verbalized by the patient): Female Comments At the time of my signature, I reviewed and agree with the nursing past medical, surgical, social, and family history. There is no relevant family history pertinent to the patient complaint. Exam Const: General: healthy appearing, no acute distress and alert Nutritional Appearance: well nourished and obese morbidly obese Orientation/consciousness: patient oriented x3 Limitations: no limitations HENMT: Head: normal to inspection Ears: external ears normal Eyes: General: appearance normal, both eyes and all related structures Pupils: Equal, round and reactive pupils present Neck: Neck: normal visual inspection, no lymphadenopathy and no meningeal signs Chest: Chest palpation & inspection: normal inspection of the chest Resp: Effort & Inspection: normal respiratory effort and no use of accessory muscles Auscultation: clear to auscultation bilaterally, no crackles, no rales, no rhonchi and no wheezes Cardio: Rate: regular rate Rhythm: regular rhythm GI: GI Palp: Yes Soft to palpation and No Tenderness to palpation present (GI) Back/Spine/Pelvis: Cervical Spine: normal cervical lordosis Thoracic/Lumbar Spine: thoracic and lumbar spine normal to inspection Skin: General skin exam: normal color Rashes: no rashes Wounds: no wounds Neuro: General: patient oriented x3, moves all extremities, no meningeal signs and no focal motor deficits Cranial nerves: Yes Equal, round and reactive pupils present Speech: normal speech Gait exam (Neuro
== END 2021-07-13 13:03 | disposition home or self-care (01) ==
PROVIDERS: Emergency Provider Nurse Practitioner
DX: G56.03 Carpal tunnel syndrome, bilateral upper limbs (principal); J45.909 Unspecified asthma, uncomplicated
CPT/HCPCS: 99213; G0463

== ENCOUNTER 2021-07-13 13:35 | Emergency (ER) | payer OTHER, SELFPAY ==
[2021-07-13 13:40] VITALS: BP 131/81; PULSE 85; RESP 16; TEMP 36.1; O2SAT 100
[2021-07-13 15:38] LABS: Appearance Urine Slightly Cloudy (Clear); Bilirubin Urine Negative (Negative); Blood Urine Negative (Negative); Color Urine Yellow (Yellow); Glucose Urine UA Negative (Negative); Ketones Urine Negative (Negative); Leukocyte Esterase Ur Negative LEU/UL (Negative); Nitrate Urine Negative (Negative); Protein Urine Negative (Negative); Specific Grav Ur >= 1.030 (1.001-1.035); Urobilinogen Urine 0.2 mg/dL (<2.0); pH Urine 5.5 (5.0-9.0)
[2021-07-13 15:42] LABS: Bacteria Urine Trace /hpf; Mucus Urine Rare /lpf; RBC Urine 0-2 /hpf (0-2); Squamous Epithelial Cell Urine Many /hpf (Few)
[2021-07-13 15:48] LABS: Add Urine Microscopic? YES
--- NOTE | 2021-07-13 16:33 | ED.BACK ---
HPI - Back Pain/Injury General Chief Complaint: Back Pain/Injury Stated Complaint: b/l hand pain x 1 week Time Seen by Provider: 07/13/21 15:54 History of Present Illness HPI Narrative: 35-year-old female presents to the ER today for complaints of bilateral hand and wrist pain. She reports that the pain has been present for the past week. She feels like her hands feel puffy at times. She gets pins and needle tingling sensation in her hands at times. She has been taking ibuprofen but does not feel like this is helped with her symptoms. She does not currently have a primary care provider but she has scheduled an appointment with a new provider in August. Related Data Allergies Allergy/AdvReac Type Severity Reaction Status Date / Time No Known Allergies Allergy Verified 07/13/21 12:52 Review of Systems Review of Systems: CONSTITUTIONAL: Denies fever, chills, or sweats. EYES: Denies visual changes, redness, or discharge. ENT: Denies rhinorrhea, congestion, sore throat, or otalgia. CARDIOVASCULAR: Denies chest pain, palpitations, or edema. RESPIRATORY: Denies cough or dyspnea. GASTROINTESTINAL: Denies abdominal pain, nausea, vomiting, or diarrhea. GENITOURINARY: Denies dysuria or hematuria. SKIN: Denies rash or itching. MUSCULOSKELETAL: As per HPI NEUROLOGIC: Denies headache, numbness, dizziness, or weakness. PSYCHIATRIC: Denies anxiety or depression. PMFSH Past Medical History Medical History Asthma History of miscarriage Pituitary abnormality Surgical History Surgical History No pertinent past surgical history Family History Family History Other No active medical problems Social History Social History Smoking status: Never smoker Alcohol intake: never Gender identity (if verbalized by the patient): Female Exam Narrative: GENERAL: Well-appearing, well-nourished, and in no acute distress. HEAD: Normocephalic, atraumatic. NECK: Supple. No adenopathy or masses. CHEST: Clear to auscultation. No respiratory distress. No wheezes rales or rhonchi HEART: Regular rate and rhythm. No murmur heard. Normal peripheral pulses. ABDOMEN: Soft, nontender, nondistended, normal active bowel sounds. EXTREMITIES: Positive Phalen's and Tinel's test bilaterally. No swelling or deformity noted to wrist or hands. Normal range of motion. SKIN: Warm, dry, no rash. No erythema. NEURO: No focal deficits. Alert and oriented x3. PSYCH: Normal mood and affect. Course Vital Signs Vital signs: Vital Signs Temperature 36.1 C L 07/13/21 13:40 Pulse Rate 85 07/13/21 13:40 Respiratory Rate 16 07/13/21 13:40 Blood Pressure 131/81 07/13/21 13:40 Pulse Oximetry 100 07/13/21 13:40 Oxygen Delivery Room Air 07/13/21 13:40 Temperature 36.1 C L 07/13/21 13:40 Pulse Rate 85 07/13/21 13:40 Respiratory Rate 16 07/13/21 13:40 Blood Pressure 131/81 07/13/21 13:40 Pulse Oximetry 100 07/13/21 13:40 Oxygen Delivery Room Air 07/13/21 13:40 MDM - Back Pain/Injury MDM Narrative Medical decision making narrative: Discussed with patient that she will need further outpatient evaluation for possible carpal tunnel syndrome. I have explained to her that she should wear wrist splints during the night. Changed her NSAID to naprosyn and she will try to get nearer appt with primary care provider. Lab Data Labs: Lab Results 07/13/21 Range/Units 15:27 Urine Color Yellow (Yellow) Urine Appearance Slightly cloudy (Clear) Urine pH 5.5 (5.0-9.0) Ur Specific [place] >= 1.030 (1.001-1.035) Urine Protein Negative (Negative) mg/dL Urine Glucose (UA) Negative (Negative) mg/dL Urine Ketones Negative (Negative) mg/dL Ur Blood (Man) Negative (Negative)
== END 2021-07-13 16:55 | disposition home or self-care (01) ==
PROVIDERS: Emergency Medicine; Emergency Provider Nurse Practitioner Family
DX: M25.532 Pain in left wrist (principal); M25.531 Pain in right wrist; R20.2 Paresthesia of skin; J45.909 Unspecified asthma, uncomplicated
CPT/HCPCS: 81001; 81025; 99283

== ENCOUNTER 2021-08-16 10:01 | Emergency (ER) | payer OTHER, SELFPAY ==
[2021-08-16 10:07] VITALS: BP 140/79; PULSE 112; RESP 18; TEMP 37.1; O2SAT 98
[2021-08-16 10:14] VITALS: PULSE 112; RESP 18; O2SAT 98
--- NOTE | 2021-08-16 10:17 | ED.GENADULT ---
HPI - General Adult General Chief complaint: Unspecified Stated complaint: ?myalgias Time Seen by Provider: 08/16/21 10:04 History of Present Illness HPI narrative: 36-year-old female presents secondary to symptoms are indicative of COVID. She started yesterday with a headache, body aches, chills, fevers, nausea, cough, and congestion. Patient is not vaccinated for COVID. She has no other medical problems. Denies a history of asthma bronchitis or pneumonia. She is nauseated but had no vomiting. Has been taking some [id number] medication for this up to this point. She lives with her boyfriend who is also not vaccinated for COVID but her daughter who lives there is vaccinated for COVID. Related Data Allergies Allergy/AdvReac Type Severity Reaction Status Date / Time No Known Allergies Allergy Verified 08/16/21 10:12 Review of Systems Review of Systems: CONSTITUTIONAL: Patient is complaining of fever and chills EYES: Denies visual changes, redness, or discharge. ENT: Denies rhinorrhea, congestion, sore throat, or otalgia. CARDIOVASCULAR: Denies chest pain, palpitations, or edema. RESPIRATORY: Nonproductive cough GASTROINTESTINAL: Denies abdominal pain, nausea, vomiting, or diarrhea. GENITOURINARY: Denies dysuria or hematuria. SKIN: Denies rash or itching. MUSCULOSKELETAL: Denies back pain, joint pain, or myalgia. NEUROLOGIC: Denies headache, numbness, or weakness. PSYCHIATRIC: Denies anxiety or depression. [facility] Past Medical History Medical History Asthma History of miscarriage Pituitary abnormality Surgical History Surgical History No pertinent past surgical history Family History Family History Other No active medical problems Social History Social History Smoking status: Never smoker Alcohol intake: never Gender identity (if verbalized by the patient): Female Exam Narrative: APPEARANCE: Ill-appearing Head normocephalic and atraumatic. EYES: PERRLA/EOMI, conjunctivae very clear. NOSE: Normal with no drainage EARS:TMS clear Tim Mckenzie, with good light reflex. THROAT: Pharynx clear, no exudate. NECK: Supple. No adenopathy, no masses. RESPIRATORY: Airway patent, respirations nonlabored. Clear to auscultation bilaterally, no rales, rhonchi, wheezing. CARDIOVASCULAR: Regular rate and rhythm without murmurs, rubs, or gallops. ABDOMINAL: Soft, nontender, nondistended, no hepatosplenomegaly Musculoskeletal: Moves all extremities. Strength/ROM intact, No edema, No calf tenderness. NEURO: Alert. Cranial nerves II through XII intact. Normal gait. Good coordination. Nonfocal examination. SKIN:: Warm, dry. Normal Color PSYCHIATRIC: Normal affect/mood, normal interaction Course Vital Signs Vital signs: Vital Signs Temperature 98.7 F 08/16/21 10:07 Pulse Rate 112 H 08/16/21 10:07 Respiratory Rate 18 08/16/21 10:07 Blood Pressure 140/79 08/16/21 10:07 Pulse Oximetry 98 08/16/21 10:07 Oxygen Delivery Room Air 08/16/21 10:07 Temperature 98.7 F 08/16/21 10:07 Pulse Rate 112 H 08/16/21 10:14 Respiratory Rate 18 08/16/21 10:14 Blood Pressure 140/79 08/16/21 10:07 Pulse Oximetry 98 08/16/21 10:14 Oxygen Delivery Room Air 08/16/21 10:07 Medical Decision Making MDM Narrative Medical decision making narrative: Patient's COVID test came back positive. This was explained to the patient. Would put on account OF Paxlavoid in order to decrease the duration that she just began with the symptoms. She is also not vaccinated. Vital Signs Vital Signs: Vital Signs Temperature 98.7 F 08/16/21 10:07 Pulse Rate 112 H 08/16/21 10:07 Respiratory Rate 18 08/16/21 10:07 Blood Pressure 140/79 08/16/21 10:07 Pulse Oximetry 98 08/16/21 10:07 Ox
[2021-08-16] MEDS: IBUPROFEN 600 MG TABLET PO (10:24)
[2021-08-16] MEDS: ONDANSETRON HCL ODT 4 MG TABLET PO (10:24)
[2021-08-16] MEDS: ACETAMINOPHEN 500 MG TABLET 1000 MG PO (10:24)
[2021-08-16 11:08] LABS: SARS-CoV-2 RNA PCR Positive
[2021-08-16 11:37] VITALS: BP 132/72; PULSE 65; RESP 18; O2SAT 98
== END 2021-08-16 11:35 | disposition home or self-care (01) ==
PROVIDERS: Emergency Provider Emergency Medicine
DX: U07.1 COVID-19 (principal); Z28.310 Unvaccinated for COVID-19; J45.909 Unspecified asthma, uncomplicated
CPT/HCPCS: 99283; A9270; C9803; U0003; U0005

== ENCOUNTER 2021-10-14 19:03 | Emergency (ER) | payer OTHER, SELFPAY ==
[2021-10-14 19:11] VITALS: BP 137/82; PULSE 96; RESP 16; TEMP 36.7; O2SAT 99
--- NOTE | 2021-10-14 19:12 | ED.DENTAL ---
HPI - Dental/Oral General Chief complaint: Dental/Oral Stated complaint: tooth pain Time Seen by Provider: 10/14/21 19:13 Source: patient and RN notes reviewed Mode of arrival: ambulatory Limitations: no limitations History of Present Illness HPI Narrative: 36-year-old female presents to the [facility] with complaints of right upper dental pain and a cut to the left lateral thumb. Reports that she was bit by a dog a year ago and received update tetanus. Related Data Allergies Allergy/AdvReac Type Severity Reaction Status Date / Time No Known Allergies Allergy Verified 10/14/21 19:04 Review of Systems Review of Systems: All systems reviewed & are unremarkable except as noted in HPI and below Constitutional: Constitutional: Reports no additional constitutional complaints, Denies chills and Denies fever(s) Eyes: Eyes: Reports no additional eye complaints ENT: Reports as per HPI (right upper dental pain and swelling) Cardiovascular: Cardiovascular: Reports no additional cardiovascular complaints Respiratory: Respiratory: Reports no additional respiratory complaints Gastrointestinal: Gastrointestinal: Reports no additional gastrointestinal complaints Musculoskeletal: Musculoskeletal: Reports no additional musculoskeletal complaints Integumentary/Breasts: Skin/Breast: Reports system reviewed and no additional complaints, except as docu Neurologic: Reports system reviewed and no additional complaints, except as documented Psychiatric: Psychiatric: Reports no additional psychiatric complaints Allergic/Immunologic: Allergic/Immunologic: Reports no additional allergic/immunologic complaints PMFSH Past Medical History Medical History Asthma History of miscarriage Pituitary abnormality Surgical History Surgical History No pertinent past surgical history Family History Family History Other No active medical problems Social History Social History Smoking status: Never smoker Alcohol intake: never Gender identity (if verbalized by the patient): Female Comments At the time of my signature, I reviewed and agree with the nursing past medical, surgical, social, and family history. There is no relevant family history pertinent to the patient complaint. Exam Const: General: healthy appearing, no acute distress and alert Nutritional Appearance: well nourished Orientation/consciousness: patient oriented x3 Limitations: no limitations HENMT: Head: normal to inspection Ears: external ears normal, TM's normal bilaterally and EAC's normal General nose exam: Normal external nose present Face and sinus: normal facial exam Mouth: Yes Normal oral and palatal mucosa present, Yes lip normal and Yes moist mucous membranes Teeth and gingiva: abnormal tooth and associated gingiva (3/4 teeth swelling noted to gingiva, cavity) Throat: posterior oropharynx normal and uvula midline Eyes: General: appearance normal, both eyes and all related structures Conjunctivae: conjunctivae normal Pupils: Equal, round and reactive pupils present Neck: Neck: normal visual inspection, no lymphadenopathy and no meningeal signs Chest: Chest palpation & inspection: normal inspection of the chest Resp: Effort & Inspection: normal respiratory effort and no use of accessory muscles Auscultation: clear to auscultation bilaterally, no crackles, no rales, no rhonchi and no wheezes Cardio: Rate: regular rate Rhythm: regular rhythm Back/Spine/Pelvis: Cervical Spine: normal cervical lordosis Thoracic/Lumbar Spine: thoracic and lumbar spine normal to inspection Skin: General skin exam: normal color Rashes: no rashes Wounds: wounds noted (1 cm avulsion of skin right ulnar aspect thumb) Neuro: General: patient oriented x3, mov
== END 2021-10-14 19:25 | disposition home or self-care (01) ==
PROVIDERS: Emergency Provider Nurse Practitioner
DX: K04.7 Periapical abscess without sinus (principal); S61.001A Unspecified open wound of right thumb without damage to nail, initial encounter; W45.8XXA Other foreign body or object entering through skin, initial encounter; J45.909 Unspecified asthma, uncomplicated
CPT/HCPCS: 99213; G0463

== ENCOUNTER 2021-11-19 14:09 | Emergency (ER) | payer OTHER, SELFPAY ==
--- NOTE | 2021-11-19 15:15 | ED.FEMALEGU ---
HPI - Female Genitourinary General Chief complaint: Urogenital-Female Stated complaint: uti Time Seen by Provider: 11/19/21 15:29 Source: patient and RN notes reviewed Mode of arrival: ambulatory Limitations: no limitations History of Present Illness HPI Narrative: 36-year-old female presents concern for urinary frequency, decreased amount, dysuria and urgency. She reports history of urinary tract infections. She reports right low back pain. She denies fever, bodies, chills, sweats, abnormal vaginal discharge. MD elicited complaint: UTI Related Data Allergies Allergy/AdvReac Type Severity Reaction Status Date / Time No Known Allergies Allergy Verified 11/19/21 15:23 Review of Systems Review of Systems: CONSTITUTIONAL: Denies malaise, chills, sweats, or fever. CARDIOVASCULAR: Denies chest pain, palpitations, or edema. RESPIRATORY: Denies cough or dyspnea. GASTROINTESTINAL: Denies abdominal pain, nausea, vomiting, diarrhea GENITOURINARY: Reports dysuria, frequency, urgency, decreased urine amount. Denies flank pain or hematuria. SKIN: Denies rash or itching. MUSCULOSKELETAL: Reports right low back pain. Denies myalgia. All systems reviewed & are unremarkable except as noted in HPI and below PMFSH Past Medical History Medical History Asthma History of miscarriage Pituitary abnormality Surgical History Surgical History No pertinent past surgical history Family History Family History Other No active medical problems Social History Social History Smoking status: Never smoker Alcohol intake: never Gender identity (if verbalized by the patient): Female Comments At time of signature, agree with nursing past medical, surgical, social and family history. There is no relevant family history pertinent to the presenting complaint Exam Narrative: GENERAL: Well-appearing, well-nourished, and in no acute distress. HEAD: Normocephalic. EYES: PERRLA, conjunctivae clear. NECK: Supple. No lymphadenopathy CHEST: Clear to auscultation. No respiratory distress. HEART: Regular rate and rhythm. ABDOMEN: Soft, nontender upon palpation, nondistended, normal active bowel sounds, no palpable or pulsatile masses, no guarding. No CVA tenderness SKIN: Warm, dry, no rash. NEURO: Alert and oriented x3. PSYCH: Normal mood and affect Course Course Emergency Course: Patient is aware of diagnosis, understands and agrees to treatment plan. Anticipatory guidance given. Patient agrees to follow-up as directed and is aware of reasons to seek care at the emergency department. Portions of this record may have been created with voice recognition software Level of Care: Express Care Visit Vital Signs Vital signs: Reviewed. MDM - Female Genitourinary MDM Narrative Medical decision making narrative: Exam findings and UA show no acute concerns or changes; patient is non-toxic appearing and is in no distress. Patient is appropriate for outpatient treatment and follow-up. Differential Diagnosis Differential diagnosis: Likely urinary tract infection and cystitis Critical Care Time Critical Care Time Critical Care Time: No Discharge Plan Discharge Clinical Impression: Urinary frequency, History of group B Streptococcus (GBS) infection Patient Disposition: Home, Self-Care Condition: Stable Instructions: Antibiotic Form, Urinary Tract Infection in Women (ED) Additional Instructions: We will send a urine culture to the lab; if the culture identifies an organism that the prescribed antibiotic will not treat, you will receive a phone call from an urgent care staff member and an appropriate antibiotic will be prescribed. -Your symptoms should begin to improve within a day of starting antibiotics. But you
[2021-11-19 15:16] VITALS: BP 134/83; PULSE 77; RESP 16; TEMP 36.9; O2SAT 99
== END 2021-11-19 15:46 | disposition home or self-care (01) ==
PROVIDERS: Emergency Provider Nurse Practitioner
DX: R35.0 Frequency of micturition (principal); J45.909 Unspecified asthma, uncomplicated; Z86.19 Personal history of other infectious and parasitic diseases
CPT/HCPCS: 81003; 87086; 99213; G0463

== ENCOUNTER 2021-12-09 09:09 | Emergency (ER) | payer OTHER, SELFPAY ==
[2021-12-09 09:15] VITALS: BP 132/80; PULSE 74; RESP 18; TEMP 36.9; O2SAT 100
--- NOTE | 2021-12-09 09:49 | ED.NAVMDI ---
HPI - Nausea/Vomiting/Diarrhea General Chief complaint: Nausea/Vomiting/Diarrhea Stated complaint: Diarrhea Time Seen by Provider: 12/09/21 09:37 Source: patient Mode of arrival: ambulatory Limitations: no limitations History of Present Illness HPI Narrative: Patient presents today with a one-week history of nausea, vomiting, and diarrhea. States she vomits every time she eats, up to 3 times per day. States she has at least 7 episodes of diarrhea per day. She states she is able to keep down fluids, but no food. Reports she is still urinating. Denies fever. She has tried some Pepto-Bismol without relief. LMP 11/26/2021 the lasted for 2 weeks. She took a home test that was negative Related Data Allergies Allergy/AdvReac Type Severity Reaction Status Date / Time No Known Allergies Allergy Verified 11/19/21 15:23 Review of Systems Review of Systems: CONSTITUTIONAL: Denies body aches, fever, chills, or sweats. EYES: Denies visual changes, redness, or discharge. ENT: Denies rhinorrhea, congestion, sore throat, or otalgia. CARDIOVASCULAR: Denies chest pain, palpitations, or edema. RESPIRATORY: Denies cough or dyspnea. GASTROINTESTINAL: Denies abdominal pain. + nausea, vomiting, diarrhea GENITOURINARY: Denies dysuria or hematuria. SKIN: Denies rash, itching, or wounds. MUSCULOSKELETAL: Denies back pain, joint pain, or myalgia. NEUROLOGIC: Denies headache, numbness, tingling, or weakness. PSYCH: Denies depression or anxiety. [facility] Past Medical History Medical History Asthma History of miscarriage Pituitary abnormality Surgical History Surgical History No pertinent past surgical history Family History Family History Other No active medical problems Social History Social History Smoking status: Never smoker Alcohol intake: never Gender identity (if verbalized by the patient): Female Comments At time of signature, I have reviewed and agree with nursing past medical, surgical, social and family history unless otherwise noted. Please see nursing chart for further information. There is no relevant family history pertinent to the presenting complaint Exam Narrative: GENERAL: Well-appearing, well-nourished, and in no acute distress. HEAD: Normocephalic, atraumatic. EYES: EOMI. No redness or drainage. Conjunctivae normal. ENT: Mucous membranes pink and moist. Throat normal. Uvula midline. NECK: Normal AROM. Supple. No lymphadenopathy. CHEST: No respiratory distress. Clear to auscultation. HEART: Regular rate and rhythm. No murmur appreciated. Normal peripheral pulses. ABDOMEN: Soft, nontender, nondistended, normal active bowel sounds. MUSCULOSKELETAL: No bony tenderness. EXTREMITIES: Normal range of motion. No edema. SKIN: Warm, dry, no rash. Capillary refill normal. Normal skin turgor. NEURO: No focal deficits. Alert and oriented x3. Gait steady. PSYCH: Normal affect. No signs of depression or anxiety. Course Course Level of Care: Express Care Visit Vital Signs Vital signs: Vital Signs Temperature 98.5 F 12/09/21 09:15 Pulse Rate 74 12/09/21 09:15 Respiratory Rate 18 12/09/21 09:15 Blood Pressure 132/80 12/09/21 09:15 Pulse Oximetry 100 12/09/21 09:15 Oxygen Delivery Room Air 12/09/21 09:15 Temperature 98.5 F 12/09/21 09:15 Pulse Rate 74 12/09/21 09:15 Respiratory Rate 18 12/09/21 09:15 Blood Pressure 132/80 12/09/21 09:15 Pulse Oximetry 100 12/09/21 09:15 Oxygen Delivery Room Air 12/09/21 09:15 Reviewed. Pt has been instructed to follow up with her PCP regarding her elevated blood pressure today. MDM - Nausea/Vomiting/Diarrhea Differential Diagnosis Differential diagnosis: Likely gastroent
== END 2021-12-09 10:03 | disposition home or self-care (01) ==
PROVIDERS: Emergency Provider Nurse Practitioner
DX: R11.2 Nausea with vomiting, unspecified (principal); R19.7 Diarrhea, unspecified; J45.909 Unspecified asthma, uncomplicated
CPT/HCPCS: 99213; G0463

== ENCOUNTER 2022-05-23 11:54 | Emergency (ER) | payer OTHER, SELFPAY ==
[2022-05-23 12:01] VITALS: BP 126/83; PULSE 87; RESP 20; TEMP 37.1; O2SAT 99
--- NOTE | 2022-05-23 12:28 | ED.GENADULT ---
HPI - General Adult General Chief complaint: Unspecified Stated complaint: Chest Pain/Hands Numb Time Seen by Provider: 05/23/22 12:35 Mode of arrival: ambulatory Limitations: no limitations History of Present Illness HPI narrative: 36-year-old female presents multiple complaints. She reports yesterday afternoon she began having midsternal chest pain and migraine headache. She reports she went to sleep hoping to help her symptoms, she woke up this morning with her symptoms unchanged. She also reports her hands are tingly bilaterally and feels swollen. Patient has a history of asthma and a history of carpal tunnel syndrome. She denies taking any medications for her symptoms. She reports her symptoms are not relieved or exacerbated by any factor. She denies vomiting, diarrhea. Denies fever, aches, chills, sweats. Denies abdominal pain. She denies rhinorrhea, nasal congestion, sore throat. MD complaint: Chest pain Related Data Allergies Allergy/AdvReac Type Severity Reaction Status Date / Time No Known Allergies Allergy Verified 05/23/22 12:00 Review of Systems Review of Systems: CONSTITUTIONAL: Denies malaise, chills, sweats, or fever. EYES: Denies visual changes, redness, or discharge. ENT: Denies rhinorrhea, congestion, sinus pain, otalgia or sore throat. CARDIOVASCULAR: Reports midsternal chest pain. Denies palpitations, or edema. RESPIRATORY: Denies cough or dyspnea. GASTROINTESTINAL: Denies abdominal pain, nausea, vomiting, diarrhea, bloody, or mucous stools. SKIN: Denies rash or itching. MUSCULOSKELETAL: Denies back pain, joint pain, or myalgia. NEUROLOGIC: Denies numbness, weakness. Reports headache. All systems reviewed & are unremarkable except as noted in HPI and below [facility] Past Medical History Medical History Asthma History of miscarriage Pituitary abnormality Surgical History Surgical History No pertinent past surgical history Family History Family History Other No active medical problems Social History Social History Smoking status: Never smoker Alcohol intake: never Gender identity (if verbalized by the patient): Female Comments At time of signature, agree with nursing past medical, surgical, social and family history. There is no relevant family history pertinent to the presenting complaint Exam Narrative: GENERAL: Well-appearing, well-nourished, and in no acute distress. HEAD: Normocephalic, atraumatic. EYES: PERRLA, sclera clear, and EOMI. No nystagmus. ENT: Nares clear, turbinates pink, no rhinorrhea or epistaxis. Mucous membranes moist. TM pearly johansen with sharp light reflex bilaterally; no tragal tenderness. Oropharynx without erythema or lesions. Tonsils not enlarged and without exudate. NECK: Supple. No lymphadenopathy. No jugular venous distension, thyromegaly, or carotid bruits. Carotids were easily palpable bilaterally. CHEST: No respiratory distress. Clear to auscultation. No bony deformities, no asymmetry. Speaks in full sentences. HEART: Regular rate and rhythm. No murmur heard. Normal peripheral pulses. ABDOMEN: Soft, nontender, nondistended, normal active bowel sounds, no palpable masses. EXTREMITIES: Normal range of motion. No edema. Normal strength and sensation. SKIN: Warm, dry, no visible rash. NEURO: Alert and oriented x3. No focal deficits. Cranial nerves II through XII grossly intact PSYCH: Normal mood and affect Course Course Emergency Course: Patient is aware of diagnosis, understands and agrees to treatment plan. Anticipatory guidance given. Patient agrees to follow-up as directed and is aware of reasons to seek care at the emergency department. Portions of this record may have been created with voice recognition [employer]
--- NOTE | 2022-05-23 12:38 | ECG_ITS ---
Measurements Intervals [place] Rate: 84 P: 49 SC: 141 QRS: -5 QRSD: 96 T: 43 QT: 339 QTc: 402 Interpretive Statements SINUS RHYTHM WITH A SHORT SC INTERVAL NONSPECIFIC T-WAVE ABNORMALITY NO PREVIOUS ECG AVAILABLE FOR COMPARISON Electronically Signed On 05-23-2022 19:23:22 CDT by Josefina Sprague M.D.
[2022-05-23] MEDS: LIDOCAINE HCL 2% VISC SOLN 15 ML UDC PO (12:56)
[2022-05-23] MEDS: MAG HYDROX/AL HYDROX/SIMETH 30 ML UDC 15 ML PO (12:56)
[2022-05-23] MEDS: KETOROLAC (*BKC) 60 MG/2 ML VIAL IM (13:26)
== END 2022-05-23 13:52 | disposition home or self-care (01) ==
PROVIDERS: Emergency Provider Nurse Practitioner
DX: R10.13 Epigastric pain (principal); R51.9 Headache, unspecified; J45.909 Unspecified asthma, uncomplicated
CPT/HCPCS: 93005; 96372; 99213; A9270; G0463; J1885

== ENCOUNTER 2022-10-28 12:06 | Emergency (ER) | payer OTHER, SELFPAY ==
[2022-10-28 12:17] VITALS: BP 148/89; PULSE 85; RESP 16; TEMP 36.6; O2SAT 100
[2022-10-28 12:18] VITALS: BP 148/89; PULSE 85; RESP 16; TEMP 36.6; O2SAT 100
--- NOTE | 2022-10-28 12:35 | ECG_ITS ---
Measurements Intervals [place] Rate: 86 P: 68 TX: 142 QRS: 16 QRSD: 82 T: 25 QT: 328 QTc: 393 Interpretive Statements SINUS RHYTHM MINIMAL Q WAVES- INFERIOR LEADS NONSPECIFIC T-WAVE ABNORMALITY- DIFFUSE LEADS BASELINE ARTIFACT- II, III BORDERLINE ECG COMPARED TO ECG 05/23/2022 12:46:35 NO SIGNIFICANT CHANGES Electronically Signed On 10-28-2022 13:20:11 CDT by Lasha Ken D.O.
--- NOTE | 2022-10-28 12:49 | ED.CHESTPAIN ---
HPI - Chest Pain General Chief Complaint: Chest Pain Stated Complaint: Dental/Chest Wall Pain Time Seen by Provider: 10/28/22 12:49 Source: patient, RN notes reviewed and old records reviewed Mode of arrival: ambulatory Limitations: no limitations History of Present Illness HPI narrative: 37 year old female who presents to [facility] care with complaints of mid sternal intermittent chest discomfort with no radiation of pain, denies any nausea or any sweating, no shortness of breath. reports she has history of asthma has not taken any medications for her discomfort.Patient also reports that she has sinus congestion and some drainage, pain above her right eye and also some dental pain to right lower molar. Patient reports that she has a dentist but has not contacted them in regards to her dental problem. MD complaint: chest discomfort and other (dental pain) Pertinent past history: asthma Onset (ago): hour(s) (today) Timing of current episode: episodic Pain scale (0-10): 7 Treatment prior to arrival: none Related Data Home Medications Medication Instructions Recorded Confirmed albuterol 90 mcg/actuation aerosol mcg inhalation 10/28/22 inhaler Allergies Allergy/AdvReac Type Severity Reaction Status Date / Time No Known Allergies Allergy Verified 10/28/22 12:17 Review of Systems Review of Systems: CONSTITUTIONAL: Denies fever, chills, or sweats. ENT: Denies rhinorrhea, congestion, sore throat, or otalgia. Reports dental pain to right lower back molar, no facial swelling CARDIOVASCULAR:reports some midsternal chest pain with no shortness of breath or any radiation of pain or any nausea, no palpitations, or edema. RESPIRATORY: Denies cough or dyspnea. SKIN: Denies rash or itching. MUSCULOSKELETAL: Denies myalgia. NEUROLOGIC: Denies headache All systems reviewed & are unremarkable except as noted in HPI and below PMFSH Past Medical History Medical History Asthma History of miscarriage Pituitary abnormality Surgical History Surgical History (Updated 10/29/22 @ 14:44 by Taylor Young NP) H/O tubal ligation Family History Family History Other No active medical problems Social History Social History Smoking status: Never smoker Alcohol intake: never Gender identity (if verbalized by the patient): Female Comments At time of signature, agree with nursing past medical, surgical, social and family history. There is no relevant family history pertinent to the presenting complaint Exam Narrative: GENERAL: Well-appearing, well-nourished, and in no acute distress.speaks in full sentences, talking with daughter in room HEAD: Normocephalic, atraumatic. EYES: PERRLA and EOMI. ENT: Nares clear, clear rhinorrhea no epistaxis. Mucous membranes moist. some redness and swelling to gum along 2nd most posterior lower right molar, no facial swelling, trismus noted or any Isidro angina NECK: Supple. no lymphadenopathy CHEST: Clear to auscultation. No respiratory distress.SAO2 100% on room air HEART: Regular rate and rhythm. No murmur heard. Normal peripheral pulses.no pedal edema or any acute dyspnea SKIN: Warm, dry, no rash. NEURO: No focal deficits. Alert and oriented x3. Course Course Emergency Course: Patient is aware of diagnosis, understands and agrees to treatment plan. Anticipatory guidance given. Patient agrees to follow-up as directed and is aware of reasons to seek care at the emergency department. Portions of this record may have been created with voice recognition software Level of Care: Express Care Visit Vital Signs Vital signs: Vital Signs Temperature 36.6 C 10/28/22 12:17 Pulse Rate 85 10/28/22 12:17 Respiratory Rate 16 10/28/22 12:17 Blood Pressure 148/89 H 10/28/22 12:17 Pulse Oximetry 100
== END 2022-10-28 13:14 | disposition home or self-care (01) ==
PROVIDERS: Emergency Provider Registered Nurse
DX: K08.89 Other specified disorders of teeth and supporting structures (principal); R07.89 Other chest pain; J45.909 Unspecified asthma, uncomplicated
CPT/HCPCS: 93005; 99213; G0463

== ENCOUNTER 2023-03-09 18:40 | Emergency (ER) | payer SELFPAY ==
[2023-03-09 18:57] VITALS: BP 145/69; PULSE 104; RESP 16; TEMP 37.1; O2SAT 100
--- NOTE | 2023-03-09 19:22 | ED.GENADULT ---
HPI - General Adult General Chief complaint: Urogenital-Female Stated complaint: urinary issue,back pain Source: patient, RN notes reviewed and old records reviewed Mode of arrival: ambulatory Limitations: no limitations History of Present Illness HPI narrative: 29-year-old female presents to [facility] with complaints of lower back pain, urinary frequency, urinary urgency for the last 2 days. Patient denies abdominal pain, vomiting, fever. MD complaint: UTI symptoms Onset (ago): day(s) (2-3) Related Data Home Medications Medication Instructions Recorded Confirmed albuterol 90 mcg/actuation aerosol mcg inhalation 10/28/22 inhaler Allergies Allergy/AdvReac Type Severity Reaction Status Date / Time No Known Allergies Allergy Verified 10/28/22 12:17 Review of Systems Constitutional: Constitutional: Reports no additional constitutional complaints, Denies body ache(s), Denies chills, Denies fatigue, Denies fever(s) and Denies headache(s) Eyes: Eyes: Reports no additional eye complaints and Denies blurry vision ENT: Reports system reviewed and no additional complaints, except as documented, Denies vertigo, Denies dizziness, Denies ear discharge, Denies otalgia, Denies facial pain, Denies headache(s), Denies nasal congestion, Denies nasal discharge, Denies sinus pain, Denies sinus pressure and Denies sore throat Cardiovascular: Cardiovascular: Reports no additional cardiovascular complaints, Denies chest pain, Denies chest pain at rest, Denies rapid heart rate and Denies dyspnea Respiratory: Respiratory: Reports no additional respiratory complaints, Denies chest congestion, Denies cough, Denies pain on inspiration, Denies pain with cough and Denies dyspnea Gastrointestinal: Gastrointestinal: Denies abdominal pain, Denies diarrhea, Denies nausea and Denies vomiting Genitourinary: Genitourinary: Reports as per HPI, Reports nocturia, Reports flank pain and Reports urinary urgency Musculoskeletal: Musculoskeletal: Reports back pain Integumentary/Breasts: Skin/Breast: Denies rash Neurologic: Reports system reviewed and no additional complaints, except as documented, Denies vertigo, Denies dizziness and Denies headache(s) Endocrine: Endocrine: Denies fatigue PMFSH Past Medical History Medical History Asthma History of miscarriage Pituitary abnormality Surgical History Surgical History H/O tubal ligation Family History Family History Other No active medical problems Social History Social History Smoking status: Never smoker Alcohol intake: never Gender identity (if verbalized by the patient): Female Comments At the time of my signature, I reviewed and agree with the nursing past medical, surgical, social, and family history. There is no relevant family history pertinent to the patient complaint. Exam Const: General: cooperative, healthy appearing, no acute distress and well nourished Nutritional Appearance: well nourished Orientation/consciousness: patient oriented x3 Limitations: no limitations HENMT: Head: normal to inspection and normocephalic Ears: external ears normal, TM's normal bilaterally, mastoids normal and Abnormal EAC present Face/Nose/Sinus: normal facial exam Face and sinus: normal facial exam Mouth: Yes Normal oral and palatal mucosa present, Yes oropharynx normal and Yes moist mucous membranes Throat: tonsils normal, uvula midline and no uvular edema Eyes: General: appearance normal, both eyes and all related structures Sclera: sclerae normal Pupils: Equal, round and reactive pupils present Resp: Effort & Inspection: normal respiratory effort, able to speak in complete sentences, no audible wheezes, no cough, no respiratory distress and no retraction
== END 2023-03-09 19:35 | disposition home or self-care (01) ==
PROVIDERS: Emergency Provider Registered Nurse
DX: N30.90 Cystitis, unspecified without hematuria (principal); J45.909 Unspecified asthma, uncomplicated
CPT/HCPCS: 81003; 87086; 99213; G0463

== ENCOUNTER 2023-11-25 17:26 | Emergency (ER) | payer SELFPAY ==
[2023-11-25 17:40] VITALS: BP 141/80; PULSE 81; RESP 16; TEMP 37; O2SAT 98
== END 2023-11-25 17:41 | disposition left against medical advice (07) ==
PROVIDERS: Emergency Provider Internal Medicine Hematology & Oncology
DX: Z53.21 Procedure and treatment not carried out due to patient leaving prior to being seen by health care provider (principal)
CPT/HCPCS: 99199

== ENCOUNTER 2025-01-10 17:02 | Emergency (ER) | payer SELFPAY ==
[2025-01-10 17:11] VITALS: BP 145/89; PULSE 83; RESP 16; TEMP 36.6; O2SAT 99
[2025-01-10 18:10] LABS: EDUAAPPEAR Clear; EDUABILI Negative (Negative); EDUABLOOD Negative (Negative); EDUACOLOR1 Dark; EDUAGLUCOSE Negative (Negative); EDUAKETONE Negative (Negative); EDUALEUKO Negative (Negative); EDUANITRATE Negative (Negative); EDUAPH 7.0; EDUAPROTEIN 1+ (Negative); EDUASPGRAVITY 1.020; EDUAUROBILI 0.2
--- NOTE | 2025-01-10 18:15 | ED_ITS ---
HPI - Back Pain/Injury General Chief Complaint: Back Pain/Injury Stated Complaint: back pain Time Seen by Provider: 01/10/25 18:00 Source: patient and RN notes reviewed Mode of arrival: ambulatory Limitations: no limitations History of Present Illness HPI Narrative: 3-year-old female patient presents [facility] complaining of low low back pain and suprapubic pain it started 2-3 days ago. Patient denies any burning with urination reports suprapubic pain with urinating. She also reports having frequency hesitancy and foul-smelling cloudy urine. Patient has any fevers, eczema chills, nausea vomiting, diarrhea, chest pain difficulty breathing, flank pain, blood in her urine, vaginal bleeding or vaginal discharge, or other symptoms. Patient is has not tried anything [id number] help with symptoms. Patient denies any significant past medical history. Related Data Home Medications ?Medication ?Instructions ?Recorded ?Confirmed ?Last Taken ?Type albuterol 90 mcg/actuation aerosol mcg inhalation 10/09 03/01 Unknown History inhaler Allergies Allergy/AdvReac Type Severity Reaction Status Date / Time No Known Allergies Allergy Verified 03/09/23 19:32 Review of Systems Review of Systems: CONSTITUTIONAL: Denies fever, chills, body aches, or sweats. EYES: Denies visual changes, redness, or discharge. ENT: Denies rhinorrhea, congestion, sore throat, or otalgia. CARDIOVASCULAR: Denies chest pain, palpitations, or edema. RESPIRATORY: Denies cough or dyspnea. GASTROINTESTINAL: Denies abdominal pain, nausea, vomiting, or diarrhea. GENITOURINARY: Positive for dysuria, hesitancy, increased frequency. Negative for hematuria vaginal bleeding or vaginal discharge. SKIN: Denies rash or itching. MUSCULOSKELETAL: Positive for back pain. Negative for and flank pain, Joint pain, or myalgia. NEUROLOGIC: Denies headache, numbness, or weakness. PSYCHIATRIC: Denies anxiety or depression. All other systems reviewed are negative, except as documented in HPI. [facility] Past Medical History Medical History Pituitary abnormality History of miscarriage Asthma Surgical History Surgical History H/O tubal ligation Family History Family History Other No active medical problems Social History Social History Smoking status: Never smoker Alcohol intake: never Gender identity (if verbalized by the patient): Female Comments At the time of my signature, I reviewed and agree with the nursing past medical, surgical, social, and family history. There is no relevant family history pertinent to the patient complaint. Exam Narrative: GENERAL: This is a well-nourished, well-developed adult, in no apparent distress. They are non ill-appearing, nontoxic appearing. HEAD: normocephalic, atraumatic. EYES: Sclera clear/white. Vision is grossly intact. Conjunctiva normal bilaterally. Extraocular movements intact. EARS: External ears normal,Hearing grossly intact. NOSE: External nose normal THROAT: Mucous membranes moist NECK: Normal range of motion CARDIOVASCULAR: Regular rate and rhythm. Normal S1-S2. No clicks, gallops, rubs, murmurs. RESPIRATORY: Respiratory rate normal, respiratory effort nonlabored, no respiratory distress. Lung sounds clear to auscultation throughout. Lung sounds equal bilaterally. No adventitious lung sounds. GASTROINTESTINAL: Abdomen soft, flat, suprapubic tenderness to palpation, nondistended. Bowel sounds are active. No hepato-splenomegaly, or palpable masses. No guarding or rigidity. No rebound tenderness. SKIN: warm, Dry, intact with no suspicious lesions or rash, good texture and turgor. NEURO: awake, alert, and oriented to person, place and time. There were no obvious focal neurologic abnormalities. EXTREMITIES: No joint tenderness, effusion, or edema noted. BACK: Nontender without deformity. No CVA tenderness. Course Course Level of Care: Express Care Visit Vital Signs Vital signs: Vital Signs Temperature 97.8 F 01/10/25 17:11 Pulse Rate 83 01/10/25 17:11 Respiratory Rate 16 01/10/25 17:11 Blood Pressure 145/89 H 01/10/25 17:11 Pulse Oximetry 99 01/10/25 17:11 Oxygen Delivery Room Air 01/10/25 17:11 Temperature 97.8 F 01/10/25 17:11 Pulse Rate 83 01/10/25 17:11 Respiratory Rate 16 01/10/25 17:11 Blood Pressure 145/89 H 01/10/25 17:11 Pulse Oximetry 99 01/10/25 17:11 Oxygen Delivery Room Air 01/10/25 17:11 [facility] Narrative Medical decision making narrative: Urine dipstick with protein in urine otherwise unremarkable. Urine cultures pending. There is clinical concern for urinary tract infection. Offered antibiotic therapy your wait for culture results, patient would like to start antibiotic therapy. Will treat with Macrobid. No peritoneal findings, no guarding or rigidity. No CVA tenderness. Patient afebrile, nontoxic appearing, no apparent distress. Discussed physical exam findings. Advised supportive measures and signs/symptoms to go to the ER. Pt is appropriate for outpt treatment and f/u. Differential Diagnosis Differential Diagnosis: Urinary tract infection, pyelonephritis, cystitis, STI, kidney stone Lab Data [facility] Lab Attestation statement: I personally reviewed the patient's lab results. Labs: Lab Results 01/10/25 Range/Units 18:07 POC Urine Color Dark POC Urine Clarity Clear POC Urine pH 7.0 POC Ur Specif [place] 1.020 POC Urine Protein 1+ (Negative) POC Ur Glucose (UA) Negative (Negative) POC Urine Ketones Negative (Negative) POC Urine Blood Negative (Negative) POC Urine Nitrite Negative (Negative) POC Urine Bilirubin Negative (Negative) POC Urine Urobilinogen 0.2 POC U Leukocyte Esteras Negative (Negative) Discharge Plan Discharge Clinical Impression: Urinary tract infection Qualifiers: Urinary tract infection type: site unspecified Hematuria presence: without hematuria Qualified Code(s): N39.0 - Urinary tract infection, site not specified Patient Disposition: Home Condition: Stable Instructions: Antibiotic Form, Urinary Tract Infection in Women (ED) Additional Instructions: Take the antibiotic as prescribed The urine will be sent of for a culture to identify what type of bacteria is causing your infection. If the culture shows that the antibiotic will not get rid of your infection, you will be notified and a new antibiotic will be called in for you. Increase water intake you will need to follow up with your PCP 3-5 days. Go to the ER for any worsening symptoms, abdominal pain, fevers, nausea, vomiting, or any other concerns Patient Language: [place] Prescriptions: New nitrofurantoin monohyd/m-cryst [Macrobid] 100 mg capsule 100 mg PO Q12H 5 Days Qty: 10 0RF Rx Instructions: must administer with a meal/food No Action albuterol 90 mcg/actuation Aerosol INHALATION amoxicillin 875 mg tablet 875 mg PO Q12H Qty: 20 0RF amoxicillin-pot clavulanate 875-125 mg tablet 1 tablet PO Q12H Qty: 10 0RF Follow-up/Referrals: PHYSICIAN,OFFICE SERVICES ASSISTANT [Primary Care Provider, Internal Medicine] Time of Disposition: 18:10
== END 2025-01-10 18:33 | disposition home or self-care (01) ==
DX: N39.0 Urinary tract infection, site not specified (principal); J45.909 Unspecified asthma, uncomplicated
CPT/HCPCS: 81003; 87086; 99213; G0463